=== PATIENT | male | born 2000 | race Caucasian/White ===

== ENCOUNTER 2024-04-17 19:36 | Emergency (ER) | payer BC, SELFPAY ==
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
[2024-04-17 19:36] VITALS: BP 129/81; PULSE 55; RESP 18; TEMP 36.8; O2SAT 100
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
--- NOTE | 2024-04-17 19:56 | PC.NURSE ---
xray at the bedside
[2024-04-17] MEDS: methocarbamoL 750 MG TABLET 1500 MG PO (20:00)
[2024-04-17] MEDS: ACETAMINOPHEN 500 MG TABLET 1000 MG PO (20:00)
[2024-04-17] MEDS: IBUPROFEN 400 MG TABLET 800 MG PO (20:01)
--- NOTE | 2024-04-17 20:08 | PC.NURSE ---
at the bedside.
--- NOTE | 2024-04-17 20:38 | PC.NURSE ---
patient was able to stand and walk cautiously in the room. states his knee feels unstable with ambulation
[2024-04-17 20:47] VITALS: BP 122/80; PULSE 52; RESP 18; O2SAT 100
== END 2024-04-17 20:47 | disposition home or self-care (01) ==
PROVIDERS: Emergency Provider Emergency Medicine; PCP Emergency Medicine
DX: S80.212A Abrasion, left knee, initial encounter (principal); V86.56XA Driver of dirt bike or motor/cross bike injured in nontraffic accident, initial encounter
CPT/HCPCS: 73562; 99283; A9270